=== PATIENT | male | born 1975 | race Caucasian/White ===

== ENCOUNTER 2020-02-13 14:53 | Emergency (ER) | payer OTHER ==
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
== END 2020-02-13 15:50 ==
LOC: MADERS 14:53
DX: S00.83XA Contusion of other part of head, initial encounter (principal); F17.210 Nicotine dependence, cigarettes, uncomplicated; Y04.0XXA Assault by unarmed brawl or fight, initial encounter
CPT/HCPCS: 70486